=== PATIENT | male | born 1995 | race Caucasian/White ===

== ENCOUNTER → 2022-05-04 | Outpatient (CLI) | payer OTHER ==
--- NOTE | 2022-05-04 16:40 | MR ---
EXAMINATION TYPE: MR sacrum/coccyx wo con DATE OF EXAM: 05/04/2022 COMPARISON: None HISTORY: Numbness in legs, hard to walk, lumbar mass, radiculopathy Multiplanar multi echo imaging of the sacrum and coccyx without contrast. The segments have normal alignment. No fracture seen. Presacral soft tissues appear normal. Sacroilia c joints appear normal. No pathologic fluid collection. There is moderate anterior and posterior lumb ar disc herniation at L5-S1. There is L5-S1 disc space narrowing. There is developmentally adequate s manda canal and no significant spinal stenosis at L5-S1. No evidence of focal bone destruction. 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 No spinal stenosis at the lumbosacral junction. No fracture seen.
--- NOTE | 2022-05-04 16:53 | MR ---
EXAMINATION TYPE: MR lumbar spine wo/w con DATE OF EXAM: 05/04/2022 COMPARISON: None HISTORY: Numbness in legs, hard to walk, lumbar mass, radiculopathy CONTRAST: Standard multiplanar, multisequence MRI departmental protocol images were obtained without contrast a nd with 9 mL intravenous Gadavist gadolinium contrast. The lumbar vertebra show normal alignment. There is degenerative disc space narrowing at L5-S1 with s mall posterior disc bulge. There is moderate disc space narrowing at L2-3 with spurring of the endpla dianna. There is posterior spurring and encroachment on the spinal canal. The lumbar nerve roots show no rmal signal pattern. No compression fracture. No lumbar paraspinal mass. The neural foramina are fair ly well maintained. No evidence of paraspinal mass. The contrast images show no pathologic enhancemen t. No focal bone destruction. IMPRESSION: Spondylotic changes more noticeable at L5-S1 and L2-3 with posterior endplate spur formation and smal l disc herniations. There is overall not a significant spinal stenosis. No fracture. No evidence of a mass.
== END | disposition home or self-care (01) ==
LOC: RADMRIMAIN 07:51
PROVIDERS: ATTEND Family Medicine
DX: M54.16 Radiculopathy, lumbar region (principal); R22.2 Localized swelling, mass and lump, trunk
CPT/HCPCS: 72158; 72195; A9585